=== PATIENT | female | born 1950 | race Caucasian/White ===

== ENCOUNTER → 2017-06-24 | Outpatient (CLI) | payer OTHER ==
[2017-06-24 13:34] VITALS: BP 174/80; PULSE 77; RESP 18; TEMP 97.9; BMI 23.6
--- NOTE | 2017-06-24 14:01 | P.GSHP ---
History of Present Illness H&P Date: 06/24/17 Patient status post a lumpectmy of the left breast 2003 with radiation. She had no chemotherapy but took anti-hormonal therapy for five years. No complaints at this time. No masses or nodules in her breast. No nipple dischare or chages. No pain in her breast. Past Surgical history: 1. 2. left breast lumpectomy Medical history: 1. HTN medication 2. high cholseteral 3. synthroid family history: 1. mother pancreatic cancer at 79 2. dad: prostate cancer - Constitutional Constitutional: Denies chills, Denies fever - EENT Eyes: denies blurred vision, denies pain - Breasts Breasts: bilateral: as per HPI - Cardiovascular Cardiovascular: Denies chest pain, Denies shortness of breath - Respiratory Respiratory: Denies cough, Denies 7 - Gastrointestinal Gastrointestinal: Denies abdominal pain, Denies diarrhea, Denies nausea, Denies vomiting - Genitourinary (Female) Genitourinary: Denies dysuria, Denies hematuria - Musculoskeletal Musculoskeletal: Denies myalgias - Integumentary Comment: skin cancer - Neurological Neurological: Denies numbness, Denies weakness - Psychiatric Psychiatric: Denies anxiety, Denies depression Past Medical History Past Medical History: Hyperlipidemia, Hypertension, Thyroid Disorder History of Any Multi-Drug Resistant Organisms: None Reported Past Surgical History: Breast Surgery, Section Additional Past Surgical History / Comment(s): lt lumpectomy. breast bx Past Anesthesia/Blood Transfusion Reactions: No Reported Reaction Past Psychological History: No Psychological Hx Reported Smoking Status: Never smoker - Past Family History Mother Family Medical History: Cancer Additional Family Medical History / Comment(s): pancreatic Father Family Medical History: Cancer, COPD Additional Family Medical History / Comment(s): prostate Medications and Allergies Home Medications Medication Instructions Recorded Confirmed Type Atorvastatin [Lipitor] 20 mg PO DAILY 06/24/17 06/24/17 History Levothyroxine Sodium [Synthroid] 75 mcg PO DAILY 06/24/17 06/24/17 History Losartan [Cozaar] 25 mg PO DAILY 06/24/17 06/24/17 History Surgical - Exam Vital Signs Temp Pulse Resp BP 97.9 F 77 18 174/80 06/24/17 13:26 06/24/17 13:26 06/24/17 13:26 06/24/17 13:26 - General well developed, well nourished, no distress - Eyes normal ocular movement - ENT normal pinna, no hearing loss - Neck no masses, trachea midline, no lymphadectomy, no venous distension - Respiratory normal expansion, normal respiratory effort, clear to percussion, clear to auscultation - Cardiovascular Rhythm: regular Heart Sounds: normal: S1, S2 - Abdomen Abdomen: soft, tender - Integumentary no rash - Neurologic normal coordination - Musculoskeletal normal gait, normal posture - Psychiatric oriented to time, oriented to person, speech is normal Impression/plan: 1. History of breast cancer 2. Hypertension 3. High cholesterol 3. Hypothyroid Plan: 1. Repeat mammogram and physician exam in 1 year for breast cancer 2. Medical management of hypertension, high cholesterol, and hypothyroidism
== END ==
LOC: WWCWWP 13:02
PROVIDERS: ATTEND Surgery
DX: Z85.3 Personal history of malignant neoplasm of breast (principal); E03.9 Hypothyroidism, unspecified; E78.00 Pure hypercholesterolemia, unspecified; I10 Essential (primary) hypertension

== ENCOUNTER → 2018-06-23 | Outpatient (CLI) | payer MEDICARE ==
[2018-06-23 11:49] VITALS: BP 161/74; PULSE 87; RESP 20; TEMP 98.4; BMI 23.0
--- NOTE | 2018-06-23 12:05 | P.GSHP ---
History of Present Illness H&P Date: 06/23/18 Chief Complaint: left breast cancer Enedelia is a 67-year-old white female status post left breast lumpectomy and radiation therapy in 2003. She did not have chemotherapy but did take anti- hormonal therapy for 5 years. She has no new masses nodules or lumps in her breasts. No nipple discharge or skin changes. The patient had a bilateral mammogram performed on . This was felt to be no evidence of malignancy. The patient is recommended to have a repeat bilateral mammogram in 1 year. Family History: mother: pancreatic cancer father: prostate cancer Hormonal history: menarche: 15 : 3, 2 children, first at 27, breast fed: yes, 1 premature menopause: 52 BCP: 10 years hormones: none Past surgical history: 1. 2. Left breast lumpectomy, axillary node dissection Past medical history: 1. Hypertension 2. High cholesterol 3. Hypothyroidism Social history: Smoke: Negative Alcohol: Negative Drugs: Negative - Constitutional Constitutional: Denies chills, Denies fever - EENT Eyes: denies blurred vision, denies pain Ears: deny: decreased hearing, tinnitus Ears, nose, mouth and throat: Denies headache, Denies sore throat - Breasts Breasts: bilateral: as per HPI - Cardiovascular Comment: HTN - Respiratory Respiratory: Denies cough, Denies 7 - Gastrointestinal Gastrointestinal: Denies abdominal pain, Denies diarrhea, Denies nausea, Denies vomiting - Genitourinary (Female) Genitourinary: Denies dysuria, Denies hematuria - Menstruation Menstruation: Reports postmenopausal - Musculoskeletal Musculoskeletal: Denies myalgias - Integumentary Integumentary: Denies pruritus, Denies rash - Neurological Neurological: Denies numbness, Denies weakness - Psychiatric Psychiatric: Denies anxiety, Denies depression - Endocrine Endocrine: Denies fatigue, Denies weight change - Hematologic/Lymphatic Comment: none - Allergic/Immunologic Comment: none Allergic/Immunologic: Reports as per HPI Past Medical History Past Medical History: Hyperlipidemia, Hypertension, Thyroid Disorder History of Any Multi-Drug Resistant Organisms: None Reported Past Surgical History: Breast Surgery, Section Additional Past Surgical History / Comment(s): lt lumpectomy. breast bx Past Anesthesia/Blood Transfusion Reactions: No Reported Reaction Past Psychological History: No Psychological Hx Reported Smoking Status: Never smoker - Past Family History Mother Family Medical History: Cancer Additional Family Medical History / Comment(s): pancreatic Father Family Medical History: Cancer, COPD Additional Family Medical History / Comment(s): prostate Medications and Allergies Home Medications Medication Instructions Recorded Confirmed Type Atorvastatin [Lipitor] 20 mg PO HS 06/24/17 06/23/18 History Levothyroxine Sodium [Synthroid] 75 mcg PO QAM 06/24/17 06/23/18 History Losartan [Cozaar] 25 mg PO HS 06/24/17 06/23/18 History Allergies Allergy/AdvReac Type Severity Reaction Status Date / Time No Known Allergies Allergy Unverified 06/23/18 11:40 Surgical - Exam BMI 23 - General well developed, well nourished, no distress - Eyes normal ocular movement - ENT no hearing loss - Neck trachea midline - Respiratory normal expansion, normal respiratory effort, clear to auscultation - Cardiovascular Rhythm: regular Heart Sounds: normal: S1, S2 - Abdomen Abdomen: soft, non tender, no guarding, no rigid, no rebound - Integumentary normal turgor - Musculoskeletal normal gait, normal posture - Psychiatric oriented to time, oriented to person, oriented to place, speech is normal, memory intact breast exam: right breast: Multiple positional exam fibrocystic changes, no dominant masses or nodules of concern, inverted Right axilla: No adenopathy of concern Left breast: Multiple positional exam well-healed scars from prior lumpectomy, no evidence of recurrent disease, nipple inverted chronically Left axilla: No adenopathy of concern Results mammogram report reviewed Assessment and Plan Assessment: Impression: 1. Left breast cancer 2003, status post lumpectomy radiation therapy and hormonal therapy 2. Hypertension 3. Family history of cancer 4. Thyroid disorder 5. Hyperlipidemia 6. No evidence of recurrent cancer Plan: 1. Repeat bilateral mammogram physician exam in 1 year 2. Medical management of medical conditions CC: Dr. Pete Figueroa
== END | disposition home or self-care (01) ==
LOC: WWCWWP 11:07
PROVIDERS: ATTEND Surgery
DX: Z53.9 Procedure and treatment not carried out, unspecified reason (principal)